=== PATIENT | male | born 2000 | race Caucasian/White ===

== ENCOUNTER 2022-09-15 14:25 | Emergency (ER) | payer MEDICAID ==
[~2022-09-15] VITALS: Ht 167.6 cm; Wt 95.3 kg
[2022-09-15 14:44] VITALS: BP_SYST 136
[2022-09-15] MEDS ORDERED: IBUP-1971 PO (15:34)
[2022-09-15 15:38] VITALS: BP_SYST 122
== END 2022-09-15 15:38 | disposition home or self-care (01) ==
LOC: SED 14:25
DX: S60.221A Contusion of right hand, initial encounter (principal); Z79.899 Other long term (current) drug therapy; Y04.0XXA Assault by unarmed brawl or fight, initial encounter; Y93.89 Activity, other specified; Y92.89 Other specified places as the place of occurrence of the external cause; Y99.8 Other external cause status
CPT/HCPCS: 99283